=== PATIENT | male | born 1965 | race Caucasian/White ===

== ENCOUNTER 2016-11-28 18:20 | Emergency (ER) | payer MEDICAID ==
[~2016-11-28] VITALS: Ht 177.8 cm; Wt 97.5 kg
--- NOTE | 2016-11-28 18:40 | NUR ---
PT LAID SELF ON THE FLOOR IN TRIAGE C/O PAIN---ADMITTING NOTIFIED ME IN [facility] [employer] , EMT , AND MYSELF HELPED PT OFF THE FLOOR ONTO WHEELCHAIR TO TRIAGE. NOTIFIED---MEDICATED
[2016-11-28 18:44] VITALS: BP 183/112
[2016-11-28] MEDS ORDERED: IBUPROFEN 600 MG TAB ONE (18:50)
[2016-11-28] MEDS ORDERED: ACETAMINOPHEN EXTRA STRENGTH 500 MG TAB ONE (18:51)
--- NOTE | 2016-11-28 19:18 | NUR ---
PT STABLE, VSS. PT C/O PAIN. ER MD NOTIFIED. PT ON MONITOR.
--- NOTE | 2016-11-28 19:20 | NUR ---
51 Y/O M W/C/O L FLANK PAIN WHICH RADIATES TO L LEG. STATES FEELS NAUSEATED BUT HAS VOMIT. DENIES FEVER OR CHILLS. STATES HIS PAIN IS 10/10. ER MD NOTIFIED.
[2016-11-28] MEDS ORDERED: NACL 0.9% 500 ML IV ONE ×2 (19:28)
[2016-11-28] MEDS ORDERED: KETOROLAC 30 MG/ML VIAL IVP ONE (19:30)
[2016-11-28] MEDS ORDERED: ONDANSETRON 4 MG/2 ML VIAL IVP ONE (19:30)
--- NOTE | 2016-11-28 19:38 | NUR ---
PT TAKEN TO CT
--- NOTE | 2016-11-28 19:38 | NUR ---
Wendy mauricio in [facility] - 11/28/16 at 1940 by NANCIE PT TAKEN TO BED 8
--- NOTE | 2016-11-28 19:46 | NUR ---
PT RETURN FROM CT
--- NOTE | 2016-11-28 20:04 | NUR ---
Dr. Bolaños evaluating patient at bedside.
[2016-11-28 21:00] VITALS: BP 143/87
--- NOTE | 2016-11-28 21:00 | NUR ---
Patient discharged with v/s stable. Written and verbal after care instructions given and explained. Patient alert, oriented and verbalized understanding of instructions. Ambulatory with steady gait. All questions addressed prior to discharge. ID band removed. Patient advised to follow up with PMD OR RETURN TO ER IF CONDITION WORSENS. Rx of PERCOCET AND ZOFRANgiven. Patient educated on indication of medication including possible reaction and side effects. Opportunity to ask questions provided and answered.COPY OF CT RESULTS PROVIDED TO PT.
== END 2016-11-28 21:00 | disposition home or self-care (01) ==
LOC: MED 18:20
DX: N20.0 Calculus of kidney (principal); Z87.442 Personal history of urinary calculi; R03.0 Elevated blood-pressure reading, without diagnosis of hypertension
CPT/HCPCS: 74176; 81002; 96361; 96374; 96375; 99284; J1885; J2405; J7030

== ENCOUNTER 2018-02-28 18:11 | Emergency (ER) | payer MEDICAID ==
[~2018-02-28] VITALS: Ht 172.7 cm; Wt 94.3 kg
[2018-02-28 18:39] VITALS: BP 131/101
--- NOTE | 2018-02-28 18:47 | NUR ---
pt back to [facility]
--- NOTE | 2018-02-28 19:25 | NUR ---
ASSUMED CARE OF PT AT THIS TIME. C/O ADEN/DIZZINESS THAT STARTED TODAY. C/O CHRONIC LEFT EARACHE AND LEFT DENTAL PAIN. AAOX4 WITH EVEN AND STEADY GAIT; PATIENT STATES PAIN OF 4/10; VSS; PATIENT POSITIONED FOR COMFORT; HOB ELEVATED; BEDRAILS UP X2; BED DOWN. ER MD MADE AWARE OF PT STATUS. WILL CONTINUE TO MONITOR.
[2018-02-28] MEDS ORDERED: NACL 0.9% 1,000 ML IV SCH (21:06)
[2018-02-28] MEDS ORDERED: METOCLOPRAMIDE 10 MG/2 ML INJ VIAL IVP ONE (21:10)
[2018-02-28] MEDS ORDERED: diphenhydrAMINE 50 MG/ML VIAL IVP ONE (21:10)
[2018-02-28] MEDS ORDERED: ACETAMINOPHEN EXTRA STRENGTH 500 MG TAB PO ONE (21:20)
--- NOTE | 2018-02-28 21:25 | NUR ---
PT RESTING COMFORTABLY. PT AWAITS MD DISPOSITION. NAD. VSS. WILL CONTINUE TO MONITOR.
--- NOTE | 2018-02-28 23:25 | NUR ---
PT RESTING COMFORTABLY. PT CONINUES TO AWAIT MD DISPOSITION. NAD. VSS. WILL CONTINUE TO MONITOR.
[2018-02-28 23:30] LABS: BARBITURATE, URINE NEG. ng/ml (NEG <=200); BENZODIAZEPINE, URINE NEG. ng/mL (NEG <=200); CANNABINOID, URINE NEG. ng/mL (NEG <=50); COCAINE, URINE NEG. ng/mL (NEG <=300); OPIATE, URINE NEG. ng/mL (NEG <=2000); PHENCYCLIDINE SCREEN,URINE NEG. ng/mL (NEG <=25)
[2018-03-01 00:24] LABS: BASOPHILS % (AUTO) 0.6 % (0.0-2.0); EOSINOPHILS # (AUTO) 0.1 K/uL (0-0.4); HEMATOCRIT 46.7 % (36-52); HEMOGLOBIN 15.5 g/dL (12.0-18.0); LYMPHOCYTES # (AUTO) 2.6 K/uL (2.0-11.5); LYMPHOCYTES % (AUTO) 44.4 % (20.5-51.1); MEAN CORPUSCULAR HEMOGLOBIN 29 pg (27-31); MEAN CORPUSCULAR HGB CONC 33 g/dL (33-37); MEAN CORPUSCULAR VOLUME 86.7 fL (80-94); MONOCYTES # (AUTO) 0.5 K/uL (0.8-1.0); MONOCYTES % (AUTO) 8.3 % (1.7-9.3); NEUTROPHILS # (AUTO) 2.7 K/uL (1.8-7.7); NEUTROPHILS % (AUTO) 45.7 % (42.2-75.2); PLATELET COUNT (AUTO) 202 K/uL (140-450); RED BLOOD CELL COUNT(AUTO) 5.39 MIL/uL (4.20-6.10); RED CELL DISTRIBUTION WIDTH 13.3 % (11.6-13.7); WHITE BLOOD COUNT (AUTO) 5.9 K/uL (4.8-10.8)
[2018-03-01 00:42] LABS: APPEARANCE,URINE CLEAR (CLEAR); BILIRUBIN,URINE NEGATIVE (NEGATIVE); BLOOD, URINE 1+ (NEGATIVE); COLOR,URINE YELLOW (YELLOW); LEUKOCYTE ESTERASE ,URINE NEGATIVE (NEGATIVE); NITRITE, URINE NEGATIVE (NEGATIVE); UGLUCOSE NEGATIVE (NEGATIVE)
[2018-03-01 00:42] LABS: ANION GAP 12.2 (8-16); CARBON DIOXIDE 27.6 mmol/L (21-32); CREATININE 1.1 mg/dL (0.7-1.3); POTASSIUM 3.8 mmol/L (3.5-5.1)
[2018-03-01 00:45] LABS: TOTAL BILIRUBIN 0.8 mg/dL (0.0-1.0)
[2018-03-01 00:53] LABS: RBC,URINE 3-10 (FEW) /HPF (0-5); WBC,URINE 0-5 (RARE) /HPF (0-5)
--- NOTE | 2018-03-01 01:25 | NUR ---
PT RESTING COMFORTABLY. PT CONINUES TO AWAIT MD DISPOSITION. NAD. VSS. WILL CONTINUE TO MONITOR.
[2018-03-01 02:45] VITALS: BP 132/84
== END 2018-03-01 02:45 | disposition home or self-care (01) ==
LOC: MED 18:11
DX: R51 Headache (principal); F41.9 Anxiety disorder, unspecified; Z87.442 Personal history of urinary calculi
CPT/HCPCS: 36415; 80053; 80305; 81001; 83690; 85025; 96374; 96375; 99284; J1200; J2765

== ENCOUNTER 2019-09-28 12:05 | Emergency (ER) | payer MEDICAID ==
[~2019-09-28] VITALS: Ht 175.3 cm; Wt 79.4 kg
[2019-09-28 12:27] VITALS: BP 141/93
--- NOTE | 2019-09-28 13:00 | NUR ---
PT AMBULATED TO BED 11
--- NOTE | 2019-09-28 13:18 | NUR ---
RECEVIED A 54/M FROM [employer] FOR C/O HEADACHE WITH NAUSEA AND VOMITING X 1 DAY. PT REPORTS THAT HE HAD SUDDEN ONSET OF HEADACHE YESTERDAY. NO NEURO DEFECITS NOTED. IN BED FOR MSE.
[2019-09-28] MEDS: KETOROLAC 60 MG/2 ML VIAL IM ONE (13:29)
--- NOTE | 2019-09-28 13:31 | NUR ---
MEDICATED ORDERED FOR PAIN. PT TOLERATED WELL. WILL REASSESS.
--- NOTE | 2019-09-28 13:40 | NUR ---
PT REPORTS RELIEF OF PAIN WITH TORADOL ADMIN. RATES PAIN AT 4/10.
[2019-09-28 14:44] VITALS: BP 141/93
--- NOTE | 2019-09-28 14:44 | NUR ---
Patient discharged with v/s stable. Written and verbal after care instructions given and explained. Patient alert, oriented and verbalized understanding of instructions. Ambulatory with steady gait. All questions addressed prior to discharge. ID band removed. Patient advised to follow up with PMD. Rx of AUGMENTIN, MOTRIN,OFLAXCIN GTT given. Patient educated on indication of medication including possible reaction and side effects. Opportunity to ask questions provided and answered.
== END 2019-09-28 14:44 | disposition home or self-care (01) ==
LOC: MED 12:05
DX: H66.90 Otitis media, unspecified, unspecified ear (principal); H72.90 Unspecified perforation of tympanic membrane, unspecified ear; R51 Headache
CPT/HCPCS: 96372; 99283; J1885

== ENCOUNTER 2020-11-27 12:11 | Emergency (ER) | payer MEDICAID ==
[~2020-11-27] VITALS: Ht 172.7 cm; Wt 100.7 kg
[2020-11-27 12:37] VITALS: BP 158/96
--- NOTE | 2020-11-27 12:42 | NUR ---
C/O 6/10 RIGHT ARM PAIN X 4 DAYS. DENIES TRAUMA/INJURY. PMH: HERNIA
[2020-11-27] MEDS ORDERED: KETOROLAC 60 MG/2 ML VIAL IM ONE (13:20)
[2020-11-27] MEDS ORDERED: ACET-8386 PO (13:22)
[2020-11-27 13:41] VITALS: BP 156/96
== END 2020-11-27 13:41 | disposition home or self-care (01) ==
LOC: MED 12:11
DX: M79.601 Pain in right arm (principal); X58.XXXA Exposure to other specified factors, initial encounter; Y93.89 Activity, other specified; Y92.89 Other specified places as the place of occurrence of the external cause; Y99.8 Other external cause status
CPT/HCPCS: 96372; 99283; J1885

== ENCOUNTER 2021-11-17 21:19 | Emergency (ER) | payer MEDICAID ==
[~2021-11-17] VITALS: Ht 172.7 cm; Wt 96.2 kg
[~2021-11-17 21:19] MED LIST: ACET-8386 PO
[2021-11-17 21:26] VITALS: BP 154/89
--- NOTE | 2021-11-17 21:32 | NUR ---
PATIENT TO BED 8 AMBULATORY
--- NOTE | 2021-11-17 21:42 | NUR ---
Dr. Walton examining patient.
--- NOTE | 2021-11-17 21:43 | NUR ---
AT [facility] EVALUATING PT WILL DO A TESTICUALR EXAM WITH A WITNESS.
[2021-11-17] MEDS ORDERED: KETOROLAC 30 MG/ML VIAL IM ONE (21:55)
--- NOTE | 2021-11-17 22:00 | NUR ---
Ultrasound at bedside.
--- NOTE | 2021-11-17 22:37 | NUR ---
PT GIVEN ORDERD IM TORADOL FOR PAIN US AT BEDSIDE COMPLETED. PT GIVING URINE SAMPLE AT THIS TIME.
[2021-11-17 22:51] LABS: APPEARANCE,URINE CLEAR (CLEAR); BILIRUBIN,URINE NEGATIVE (NEGATIVE); BLOOD, URINE TRACE-I (NEGATIVE); COLOR,URINE YELLOW (YELLOW); LEUKOCYTE ESTERASE ,URINE NEGATIVE (NEGATIVE); NITRITE, URINE NEGATIVE (NEGATIVE); UGLUCOSE NEGATIVE (NEGATIVE)
--- NOTE | 2021-11-17 22:52 | NUR ---
PT TAKEN TO CT
--- NOTE | 2021-11-17 23:04 | NUR ---
PT RETURN FROM CT
[2021-11-17 23:08] LABS: WBC,URINE 0-5 /HPF (0-5)
--- NOTE | 2021-11-17 23:40 | NUR ---
PT GIVEN IM TORADOL FOR PAIN.
[2021-11-17] MEDS ORDERED: HYDROcodone/APAP 10/325 MG 1 TAB TAB PO ONE (23:50)
--- NOTE | 2021-11-18 00:14 | NUR ---
PT GIVEN 1 TAB NORCO 10/325MG FOR C/O OF SEVERE LEG PAIN 02/10. WILL MONITOR FOR REIELF.
[2021-11-18] MEDS ORDERED: TAMS0.4C96 PO (01:49)
[2021-11-18] MEDS ORDERED: IBUP-2213 PO (01:49)
[2021-11-18] MEDS ORDERED: HYDR-5080 PO (01:49)
[2021-11-18 02:10] VITALS: BP 146/79
--- NOTE | 2021-11-18 02:10 | NUR ---
Patient discharged with v/s stable. Written and verbal after care instructions given and explained. Patient alert, oriented and verbalized understanding of instructions. Ambulatory with steady gait. All questions addressed prior to discharge. ID band removed. Patient advised to follow up with PMD. Rx of Perry 7.5-325, ibuprofen, & flomax given. Patient educated on indication of medication including possible reaction and side effects. Opportunity to ask questions provided and answered.
== END 2021-11-18 02:10 | disposition home or self-care (01) ==
LOC: MED 21:19
DX: N20.0 Calculus of kidney (principal); N43.3 Hydrocele, unspecified; K40.90 Unilateral inguinal hernia, without obstruction or gangrene, not specified as recurrent; K57.30 Diverticulosis of large intestine without perforation or abscess without bleeding; Z79.891 Long term (current) use of opiate analgesic; Z79.1 Long term (current) use of non-steroidal anti-inflammatories (NSAID); Z79.899 Other long term (current) drug therapy
CPT/HCPCS: 74176; 76870; 81001; 96372; 99284; J1885; Q0092

== ENCOUNTER 2022-07-11 15:43 | Emergency (ER) | payer MEDICAID, OTHER ==
[~2022-07-11] VITALS: Ht 172.7 cm; Wt 94.3 kg
[~2022-07-11 15:43] MED LIST changes: -ACET-8386 PO; +ACET-8905 PO; +HYDR-5080 PO; +IBUP-2213 PO; +TAMS0.4C96 PO
[2022-07-11 15:48] VITALS: BP 144/94
--- NOTE | 2022-07-11 16:17 | NUR ---
COVID, FLU SWABS DONE.
--- NOTE | 2022-07-11 16:20 | NUR ---
PT AMB TO BED 6
--- NOTE | 2022-07-11 16:28 | NUR ---
DR MARTI AT BEDSIDE.
--- NOTE | 2022-07-11 16:40 | NUR ---
57 Y/O M BIB SELF C/O COUGH, RUNNY NOSE, ADEN, SORE THROAT X 1 WEEK.COVID TESTED NEGATIVE 2 DAYS AGO. C/O NO PAIN AT THIS TIME. PMH: HTN
[2022-07-11] MEDS ORDERED: BENZ200C4 PO (16:56)
[2022-07-11] MEDS ORDERED: IBUP-2213 PO (16:56)
--- NOTE | 2022-07-11 17:14 | NUR ---
Patient discharged with v/s stable. Written and verbal after care instructions given and explained. Patient alert, oriented and verbalized understanding of instructions. Ambulatory with steady gait. All questions addressed prior to discharge. ID band removed. Patient advised to follow up with PMD. Rx of BENZONATATE, IBUPROFEN given. Opportunity to ask questions provided and answered.
--- NOTE | 2022-07-11 18:07 | NUR ---
The patient's care was reviewed and supervised by Nemo Rojas RN.
== END 2022-07-11 17:10 | disposition home or self-care (01) ==
LOC: MED 15:43
DX: J40 Bronchitis, not specified as acute or chronic (principal); Z20.822 Contact with and (suspected) exposure to COVID-19; I10 Essential (primary) hypertension; Z79.899 Other long term (current) drug therapy; Z98.890 Other specified postprocedural states
CPT/HCPCS: 99283

== ENCOUNTER 2023-06-11 10:53 | Emergency (ER) | payer OTHER ==
[~2023-06-11] VITALS: Ht 177.8 cm; Wt 92.6 kg
[~2023-06-11 10:53] MED LIST changes: +BENZ200C4 PO
[2023-06-11 11:09] VITALS: BP 139/83; PULSE 81; RESP 20; TEMP 98.2; O2SAT 98
[2023-06-11 11:28] VITALS: O2SAT 98
[2023-06-11 11:37] LABS: APPEARANCE,URINE CLEAR (CLEAR); BILIRUBIN,URINE NEGATIVE (NEGATIVE); BLOOD, URINE 1+ (NEGATIVE); COLOR,URINE YELLOW (YELLOW); LEUKOCYTE ESTERASE ,URINE NEGATIVE (NEGATIVE); NITRITE, URINE NEGATIVE (NEGATIVE); PH,URINE 6.5 (5.0-9.0); PROTEIN,URINE NEGATIVE (NEGATIVE); UGLUCOSE NEGATIVE (NEGATIVE); UROBILINOGEN,URINE 0.2 EU/dL (0.2 - 1)
[2023-06-11 11:45] LABS: BACTERIA,URINE 0-2 /HPF (None Seen); SQUAMOUS EPITHELIAL CELL,UR 4-10 (MOD) /LPF (0-3 (FEW)); WBC,URINE 0-5 /HPF (0-5)
[2023-06-11] MEDS ORDERED: CIPR500T4 PO (12:25)
[2023-06-11] MEDS ORDERED: OFLO5SOL27 RIGHT EAR (12:25)
[2023-06-11] MEDS ORDERED: KETOROLAC 30 MG/ML VIAL IM ONE (12:25)
== END 2023-06-11 12:54 | disposition home or self-care (01) ==
LOC: MED 10:53
DX: N50.811 Right testicular pain (principal); H60.91 Unspecified otitis externa, right ear; N30.00 Acute cystitis without hematuria; I10 Essential (primary) hypertension; Z79.899 Other long term (current) drug therapy; Z79.2 Long term (current) use of antibiotics; Z79.1 Long term (current) use of non-steroidal anti-inflammatories (NSAID)
CPT/HCPCS: 81001; 96372; 99283; J1885

== ENCOUNTER 2023-07-24 20:17 | Emergency (ER) | payer OTHER ==
[~2023-07-24] VITALS: Ht 172.7 cm; Wt 95.3 kg
[~2023-07-24 20:17] MED LIST changes: +CIPR500T4 PO; +OFLO5SOL27 RIGHT EAR
[2023-07-24 21:00] VITALS: BP 148/90; PULSE 84; RESP 16; TEMP 98; O2SAT 97
[2023-07-24] MEDS ORDERED: AZIT250T4 PO (21:53)
[2023-07-24] MEDS ORDERED: BENZ200C4 PO (21:53)
[2023-07-24] MEDS ORDERED: GUAI118L81 PO (21:53)
[2023-07-24] MEDS ORDERED: PRED20TA5 PO (21:53)
[2023-07-24] MEDS ORDERED: ALBU0.0912 INH (21:53)
[2023-07-24 22:18] LABS: BASOPHILS % (AUTO) 0.6 % (0.0-2.0); EOSINOPHILS % (AUTO) 0.4 % (0.0-4.0); HEMATOCRIT 45.3 % (36-52); HEMOGLOBIN 15.9 g/dL (12.0-18.0); LYMPHOCYTES # (AUTO) 2.3 K/uL (2.0-11.5); LYMPHOCYTES % (AUTO) 30.5 % (20.5-51.1); MEAN CORPUSCULAR HEMOGLOBIN 30 pg (27-31); MEAN CORPUSCULAR HGB CONC 35 g/dL (33-37); MONOCYTES # (AUTO) 0.7 K/uL (0.8-1.0); MONOCYTES % (AUTO) 9.7 % (1.7-9.3); NEUTROPHILS # (AUTO) 4.5 K/uL (1.8-7.7); NEUTROPHILS % (AUTO) 58.8 % (42.2-75.2); PLATELET COUNT (AUTO) 238 K/uL (140-450); RED BLOOD CELL COUNT(AUTO) 5.26 MIL/uL (4.20-6.10); RED CELL DISTRIBUTION WIDTH 13.8 % (11.6-13.7); WHITE BLOOD COUNT (AUTO) 7.7 K/uL (4.8-10.8)
[2023-07-24 22:43] LABS: ANION GAP 12.6 (8-16); CALCIUM 9.5 mg/dL (8.5-10.1); CARBON DIOXIDE 26.8 mmol/L (21-32); POTASSIUM 3.4 mmol/L (3.5-5.1)
[2023-07-24 23:24] LABS: FLU A ANTIGEN negative (NEGATIVE); FLU B ANTIGEN NEGATIVE (NEGATIVE)
[2023-07-24 23:59] VITALS: BP 138/84; PULSE 73; RESP 16; TEMP 98; O2SAT 98
== END 2023-07-24 23:59 | disposition home or self-care (01) ==
LOC: MED 20:17
DX: J20.9 Acute bronchitis, unspecified (principal); Z20.822 Contact with and (suspected) exposure to COVID-19; I10 Essential (primary) hypertension; Z79.899 Other long term (current) drug therapy
CPT/HCPCS: 36415; 71046; 80048; 83880; 84484; 85025; 93005; 99285